=== PATIENT | male | born 1975 ===

== ENCOUNTER 2017-01-22 09:29 | Emergency (ER) | payer BC ==
[2017-01-22] MEDS ORDERED: Ondansetron 4 MG/2 ML SDV IVPUSH ONE (09:58)
[2017-01-22] MEDS ORDERED: Sodium Chloride 0.9% 10 ML Syringe FLUSH PRN (09:58)
[2017-01-22] MEDS ORDERED: Sodium Chloride 0.9% 1,000 ML IV SCH (10:00)
--- NOTE | 2017-01-22 12:18 | EDM.PDOC ---
ED HPI GENERAL MEDICAL PROBLEM - General Chief Complaint: General Stated Complaint: NAUSEA, WEAKNESS, DIZZINESS Time Seen by Provider: 01/22/17 09:51 Source of Information: Reports: Patient History Limitations: Reports: No Limitations - History of Present Illness INITIAL COMMENTS - FREE TEXT/NARRATIVE: The patient presents with generalized weakness, nausea, lightheadedness and syncope. He said this all started a few days ago. He was at work and felt nauseated. He went into the bathroom and passed out for a few seconds. He has no chest pain, headache, shortness of breath, vomiting or abdominal pain. He denies fever or chills. He went to see Lennie Giraldo and he admitted to her that he does drink a few times per week and multiple drinks at time. He tells me he drinks 2 to 3 times per week and 5 to 6 drinks at a time. He drank 5 drinks last night. He did not eat any bad food recently but he has been around people who have been sick. Onset: Gradual Duration: Day(s): Severity: Moderate Improves with: Reports: None Worsens with: Reports: None Context: Reports: Sick Contact Associated Symptoms: Reports: Fever/Chills, Nausea/Vomiting. Denies: Cough, Headaches, Shortness of Breath - Related Data Allergies Allergy/AdvReac Type Severity Reaction Status Date / Time No Known Allergies Allergy Verified 01/22/17 09:37 Home Meds: Home Meds Ondansetron [Zofran ODT] 4 mg PO Q6H PRN #20 tab.dis 01/22/17 [Rx] busPIRone [Buspar] 10 mg PO BID 01/22/17 [History] traZODone HCl [Trazodone HCl] 50 mg PO DAILY 01/22/17 [History] Past Medical History Genitourinary History: Reports: Renal Calculus Musculoskeletal History: Reports: Back Pain, Chronic Psychiatric History: Reports: Anxiety - Past Surgical History Musculoskeletal Surgical History: Reports: Other (See Below) Other Musculoskeletal Surgeries/Procedures:: surgery to right leg (plates and screws in leg) Social & Family History - Family History Family Medical History: Noncontributory - Tobacco Use Smoking Status *Q: Current Every Day Smoker Years of Tobacco use: 6 Packs/Tins Daily: 0.5 - Caffeine Use Caffeine Use: Reports: None - Recreational Drug Use Recreational Drug Use: No ED ROS GENERAL - Review of Systems Review Of Systems: See Below Constitutional: Reports: Chills HEENT: Reports: No Symptoms Respiratory: Reports: No Symptoms Cardiovascular: Reports: Syncope. Denies: Chest Pain Endocrine: Reports: No Symptoms GI/Abdominal: Reports: Nausea. Denies: Abdominal Pain, Diarrhea, Vomiting : Reports: No Symptoms Musculoskeletal: Reports: No Symptoms ED EXAM, GENERAL - Physical Exam Exam: See Below Exam Limited By: No Limitations General Appearance: Alert, No Apparent Distress Ears: Normal External Exam Nose: Normal Inspection Head: Atraumatic, Normocephalic Neck: Normal Inspection Respiratory/Chest: No Respiratory Distress, Lungs Clear, Normal Breath Sounds Cardiovascular: Regular Rate, Rhythm, No Edema, No Murmur GI/Abdominal: Soft, Non-Tender, No Organomegaly, No Mass Back Exam: Normal Inspection Extremities: Normal Inspection Neurological: Alert, Oriented, No Motor/Sensory Deficits EKG INTERPRETATION EKG Date: 01/22/17 Time: 10:08 Rhythm: Other (Sinus tachycardia) Rate (Beats/Min): 100 [place]: Normal P-Wave: Present QRS: Normal ST-T: Normal QT: Normal Course - Vital Signs Last Recorded V/S: Last Vital Signs Temp 98.1 F 01/22/17 09:39 Pulse 97 01/22/17 09:39 Resp 16 01/22/17 09:39 BP 143/101 H 01/22/17 09:39 Pulse Ox 95 01/22/17 09:39 - Orders/Labs/Meds Orders: Active Orders 24 hr Category Date Time Status Cardiac Monitoring [RC] . DIRECTED Care 01/22/17 09:58 Active EKG Documentation Completion [RC] STAT Care 01/22/17 09:59 Active Peripheral IV Care [RC] . DIRECTED Care 01/22/17 09:59 Active Sodium Chloride 0.9% [Normal Saline] 1,000 ml Med 01/22/17 10:00 Active IV .BOLUS Sodium Chloride 0.9% [Saline Flush] Med 01/22/17 09:58 Active 10 ml FLUSH ASDIRECTED PRN ED Antiemetic Medication Reflex [OM.PC] Stat Oth 01/22/17 09:59 Ordered Peripheral IV Insertion Adult [OM.PC] Stat Oth 01/22/17 09:58 Ordered Medication Orders Sodium Chloride (Normal Saline) 1,000 mls @ 1,000 mls/hr IV .BOLUS RL Last Admin: 01/22/17 10:13 Dose: 1,000 mls/hr Sodium Chloride (Saline Flush) 10 ml FLUSH ASDIRECTED PRN PRN Reason: Keep Vein Open Last Admin: 01/22/17 10:16 Dose: 10 ml Labs: Laboratory Tests 01/22/17 01/22/17 Range/Units 10:15 10:15 WBC 12.42 H (4.23-9.07) K/mm3 RBC 4.75 (4.63-6.08) M/mm3 Hgb 15.8 (13.7-17.5) gm/L Hct 46.6 (40.1-51.0) % MCV 98.1 H (79.0-92.2) fl MCH 33.3 H (25.7-32.2) pg MCHC 33.9 (32.2-35.5) g/dl RDW Std Deviation 42.6 (35.1-43.9) fL Plt Count 310 (163-337) K/mm3 MPV 9.6 (9.4-12.3) fl Neut % (Auto) 81.4 H (34.0-67.9) % Lymph % (Auto) 8.9 L (21.8-53.1) % [place] % (Auto) 8.8 (5.3-12.2) % Eos % (Auto) 0.5 L (0.8-7.0) Baso % (Auto) 0.2 (0.1-1.2) % Neut # (Auto) 10.12 H (1.78-5.38) K/mm3 Lymph # (Auto) 1.11 L (1.32-3.57) K/mm3 [place] # (Auto) 1.09 H (0.30-0.82) K/mm3 Eos # (Auto) 0.06 (0.04-0.54) K/mm3 Baso # (Auto) 0.02 (0.01-0.08) K/mm3 Manual Slide Review Abnormal smear Sodium 139 (136-145) mEq/L Potassium 4.0 (3.5-5.1) mEq/L Chloride 103 (98-107) mEq/L Carbon Dioxide 23 (21-32) mEq/L Anion Gap 17.0 H (5-15) BUN 13 (7-18) mg/dL Creatinine 0.9 (0.7-1.3) mg/dL Est Cr Clr Drug Dosing 112.65 mL/min Estimated GFR (MDRD) > 60 (>60) mL/min BUN/Creatinine Ratio 14.4 (14-18) Glucose 107 H (74-106) mg/dL Calcium 9.4 (8.5-10.1) mg/dL Total Bilirubin 0.4 (0.2-1.0) mg/dL AST 29 (15-37) U/L ALT 38 (16-63) U/L Alkaline Phosphatase 77 (46-116) U/L Total Protein 8.1 (6.4-8.2) g/dl Albumin 4.3 (3.4-5.0) g/dl Globulin 3.8 gm/dL Albumin/Globulin Ratio 1.1 (1-2) Lipase 183 (73-393) U/L Ethyl Alcohol 0.01 (0.00) gm% Meds: Medications Generic Name Dose Route Start Last Admin Trade Name Freq PRN Reason Stop Dose Admin Sodium Chloride 1,000 mls @ 1,000 mls/hr 01/22/17 10:00 01/22/17 10:13 Normal Saline IV 1,000 mls/hr .BOLUS RL Administration Sodium Chloride 10 ml 01/22/17 09:58 01/22/17 10:16 Saline Flush FLUSH 10 ml ASDIRECTED PRN Administration Keep Vein Open Discontinued Medications Generic Name Dose Route Start Last Admin Trade Name Freq PRN Reason Stop Dose Admin Ondansetron HCl 4 mg 01/22/17 09:58 01/22/17 10:16 Zofran IVPUSH 01/22/17 09:59 4 mg ONETIME ONE Administration - Re-Assessments/Exams Free Text/Narrative Re-Assessment/Exam: 01/22/17 12:20 I ordered an IV NS 1L bolus, zofran 4mg IV, labs, and an EKG. His EKG shows a NSR with no acute changes. His WBC was a little elevated at 12.42. His anion gap is elevated at 17. His ETOH was 0.1. I asked the patient about his drinking and he does not feel he has a drinking problem. He thinks he got sick from someone else. Lennie was concerned about his drinking and so was I but it sounds like at this time he does not want help or that he even has a problem. I will give him some zofran and have him follow up in 1 week. Departure - Departure Time of Disposition: 12:25 Disposition: Home, Self-Care 01 Condition: Good Clinical Impression: Nausea Syncope Qualifiers: Syncope type: vasovagal syncope Qualified Code(s): R55 - Syncope and collapse - Discharge Information Prescriptions: Ondansetron [Zofran ODT] 4 mg PO Q6H PRN #20 tab.dis PRN Reason: Nausea/Vomiting Referrals: Leanne Santiago PA [Primary Care Provider] - 1 Week Additional Instructions: Take the zofran 4mg every 6 hours as needed for nausea and vomiting. Get some rest today. Drink plenty of fluids. - My Orders Last 24 Hours: My Active Orders 01/22/17 09:58 Cardiac Monitoring [RC] . DIRECTED Sodium Chloride 0.9% [Saline Flush] 10 ml FLUSH ASDIRECTED PRN Peripheral IV Insertion Adult [OM.PC] Stat 01/22/17 09:59 EKG Documentation Completion [RC] STAT Peripheral IV Care [RC] . DIRECTED ED Antiemetic Medication Reflex [OM.PC] Stat 01/22/17 10:00 Sodium Chloride 0.9% [Normal Saline] 1,000 ml IV .BOLUS - Assessment/Plan Last 24 Hours: My Active Orders 01/22/17 09:58 Cardiac Monitoring [RC] . DIRECTED Sodium Chloride 0.9% [Saline Flush] 10 ml FLUSH ASDIRECTED PRN Peripheral IV Insertion Adult [OM.PC] Stat 01/22/17 09:59 EKG Documentation Completion [RC] STAT Peripheral IV Care [RC] . DIRECTED ED Antiemetic Medication Reflex [OM.PC] Stat 01/22/17 10:00 Sodium Chloride 0.9% [Normal Saline] 1,000 ml IV .BOLUS
== END 2017-01-22 12:35 | disposition home or self-care (01) ==
LOC: JD.ED 09:29
DX: R55 Syncope and collapse (principal); F17.210 Nicotine dependence, cigarettes, uncomplicated
CPT/HCPCS: 36415; 80053; 83690; 85025; 93005; 96361; 96374; 99284; G0480; J2405; J7040; J7050; 93010